=== PATIENT | male | born 1980 | race Caucasian/White ===

== ENCOUNTER → 2023-02-03 08:52 | Outpatient (CLI) | payer SELFPAY ==
--- NOTE | ~2023-02-03 | US_ITS ---
EXAMINATION: US soft tissue UE RT DATE: 02/03/2023 09:20 INDICATION: Palpable area at the anterior right shoulder TECHNIQUE: Multiple grayscale and Doppler ultrasound images of the region of concern at the anterior right shoulder were obtained. COMPARISON: None FINDINGS: At the region of concern is a 1.6 x 1.5 x 0.7 cm superficial subdermal solid hypoechoic mass with lob ular margins and demonstrates similar echogenicity and echotexture to the surrounding subcutaneous fa t. Minimal internal vascularity on color Doppler. The underlying musculature appears normal. IMPRESSION: 1. Nonspecific 1.6 cm superficial subdermal mass with lobular margins at the region of concern with a ppearance most consistent with and statistically most likely to represent a lipoma. Reviewed, dictated and finalized at location L. IMPRESSION: 1. Nonspecific 1.6 cm superficial subdermal mass with lobular margins at the re gion of concern with appearance most consistent with and statistically most lik rambo to represent a lipoma.
== END ==
PROVIDERS: PCP Family Medicine; Visit Provider Family Medicine
DX: R22.31 Localized swelling, mass and lump, right upper limb (principal)
CPT/HCPCS: 76882